=== PATIENT | male | born 1940 | race Caucasian/White ===

== ENCOUNTER → 2020-01-26 | Outpatient (CLI) | payer MEDICARE ==
[~2020-01-26] MED LIST: ALLOPURINOL 10100 M1 PO; ASPIR 8181 MG PO; CINNAMON500 MG PO; CIPRO500 MG PO; COLCHICINE0.6 MG PO; FISH OIL 1,001000 M2 PO; FISH OIL300 MG PO; FLOMAX0.4 MG PO; HYDROCODONE-APA1 TA1 PO; LANTUS100 UNIT/M SUBQ; LEVAQUIN 500 M500 M2 PO; MULTI-VITAMIN1 EAC4 PO; OMEPRAZOLE40 MG PO; PRAVACHOL20 MG PO; PRILOSEC20 MG PO; PRINIVIL20 MG PO; SAVAYSA60 MG PO; TOPROL XL50 MG PO; TUMS PO; TYLENOL325 MG PO; VITAMIN B-12500 MCG PO
[2020-01-26 14:21] LABS: CREATININE 1.2 mg/dL (0.6-1.3)
== END ==
LOC: M.CT 13:04
PROVIDERS: Surgery Vascular Surgery
DX: K44.9 Diaphragmatic hernia without obstruction or gangrene (principal); I72.2 Aneurysm of renal artery

== ENCOUNTER 2020-08-25 07:59 | Emergency (ER) | payer MEDICARE ==
[~2020-08-25] VITALS: Ht 175.3 cm; Wt 101.6 kg
[2020-08-25] MEDS ORDERED: OMEPRAZOLE40 MG PO (08:13)
[2020-08-25] MEDS ORDERED: FLOMAX0.4 MG PO (08:13)
[2020-08-25] MEDS ORDERED: CATAPRES0.2 M1 PO (08:13)
[2020-08-25] MEDS ORDERED: PRAVASTATIN SOD10 MG PO (08:14)
[2020-08-25] MEDS ORDERED: LEVO-T50 MCG PO (08:14)
[2020-08-25] MEDS ORDERED: HYDROCHLOROTH12.5 M2 PO (08:14)
[2020-08-25] MEDS ORDERED: PROSCAR 5MG TABL5 M1 PO (08:14)
[2020-08-25] MEDS ORDERED: KAPSPARGO SPRI100 MG PO (08:15)
[2020-08-25] MEDS ORDERED: LISINOPRIL20 MG PO (08:15)
[2020-08-25] MEDS ORDERED: ZYLOPRIM300 MG PO (08:15)
[2020-08-25] MEDS ORDERED: LANTUS SUBQ (08:16)
[2020-08-25] MEDS ORDERED: MITIGARE0.6 MG PO (08:16)
[2020-08-25] MEDS ORDERED: ELIQUIS5 MG PO (08:16)
[2020-08-25] MEDS ORDERED: CALCIUM500 MG (08:17)
[2020-08-25] MEDS ORDERED: MULTIVITAMINS PO (08:17)
[2020-08-25] MEDS ORDERED: ACETAMINOPHEN500 MG (08:17)
[2020-08-25] MEDS ORDERED: VITAMIN C1000 MG PO (08:18)
[2020-08-25] MEDS ORDERED: VITAMIN B COMP1 EACH PO (08:18)
[2020-08-25] MEDS ORDERED: DIPHENHIST50 MG PO (08:18)
[2020-08-25] MEDS ORDERED: CINNAMON500 MG (08:19)
[2020-08-25 09:08] LABS: ABSOLUTE EOSINOPHILS 0.1 thou/uL (0.0-0.7); ABSOLUTE LYMPHOCYTES 1.5 thou/uL (0.8-5.3); ABSOLUTE MONOCYTES 0.4 thou/uL (0.0-1.2); ABSOLUTE NEUTROPHILS 7.1 thou/uL (1.6-8.1); BASOPHILS 0.4 %; HEMATOCRIT 38.6 % (42.0-52.0); LYMPHOCYTES 16.3 %; MCH 33.5 pg (26.0-34.0); MCHC 33.5 g/dL (28.0-37.0); MCV 99.8 fL (80.0-100.0); MONOCYTES 4.9 %; MPV 8.1 fl. (7.2-11.1); NUCLEATED RBCS 0 /100WBC; PLATELET COUNT* 198 thou/uL (150-400); POLYS 77.4 %; RBC 3.87 mil/uL (4.50-6.00); RDW-CV 13.3 % (10.5-14.5); WBC 9.1 thou/uL (4.0-11.0)
[2020-08-25 09:14] LABS: CREATININE 1.1 mg/dL (0.6-1.3); POTASSIUM 3.8 mmol/L (3.5-5.1)
[2020-08-25 09:27] LABS: ALBUMIN 2.1 g/dL (3.4-5.0); TOTAL BILIRUBIN 0.5 mg/dL (<0.1-1.0); TOTAL PROTEIN 6.4 g/dL (6.4-8.2)
[2020-08-25] MEDS ORDERED: KEFLEX500 M1 PO (10:10)
[2020-08-25 10:26] VITALS: BP 138/65
--- NOTE | 2020-08-25 17:06 | EKG ---
[place] [address] ELECTROCARDIOGRAM REPORT Name: MJ ROTHMAN Room: [facility]#: [id number] Admission: 08/25/20 Attend Phys: Discharge: 08/25/20 Date of : 42 Date of Service: 08/25/20902 Report #: [id number] THIS REPORT FOR: //name// [facility] ED Test Date: 2020-08-25 Test Time: 09:03:02 Pat Name: MJ ROTHMAN Department: Room: Gender: Clinical Lab Clerk: [facility] : 1940 Requested By: [facility] [place] Order Number: [id number] MD: Mihai Tripathi Measurements Intervals [place] Rate: 91 P: [place]: QRS: -50 QRSD: 105 T: 37 QT: 393 QTc: 484 Interpretive Statements Atrial fibrillation Left anterior fascicular block Consider anterior infarct Compared to ECG 02/08/2016 00:03:30 rate has slowed Electronically Signed On 08-25-2020 17:06:20 [employer]UMANITIES INSTRU[employer] by Mihai Tripathi [email or web address] <ELECTRONICALLY SIGNED> By: Mihai Tripathi MD, [facility] 08/25/20 [id number] [id number] Mihai Tripathi MD, [facility] /EPI
== END 2020-08-25 10:28 | disposition home or self-care (01) ==
LOC: M.ERS 07:59
PROVIDERS: Emergency Medicine Emergency Medical Services
DX: S01.111A Laceration without foreign body of right eyelid and periocular area, initial encounter (principal); S60.222A Contusion of left hand, initial encounter; S60.221A Contusion of right hand, initial encounter; E11.9 Type 2 diabetes mellitus without complications; I48.91 Unspecified atrial fibrillation; F17.210 Nicotine dependence, cigarettes, uncomplicated; Z79.4 Long term (current) use of insulin; W06.XXXA Fall from bed, initial encounter; Y93.89 Activity, other specified; Y92.89 Other specified places as the place of occurrence of the external cause; Y99.8 Other external cause status

== ENCOUNTER → 2021-02-21 | Outpatient (CLI) | payer MEDICARE ==
[~2021-02-21] MED LIST changes: +ACETAMINOPHEN500 MG; +CALCIUM500 MG; +CATAPRES0.2 M1 PO; +CINNAMON500 MG; +DIPHENHIST50 MG PO; +ELIQUIS5 MG PO; +HYDROCHLOROTH12.5 M2 PO; +KAPSPARGO SPRI100 MG PO; +KEFLEX500 M1 PO; +LANTUS SUBQ; +LEVO-T50 MCG PO; +LISINOPRIL20 MG PO; +MITIGARE0.6 MG PO; +MULTIVITAMINS PO; +PRAVASTATIN SOD10 MG PO; +PROSCAR 5MG TABL5 M1 PO; +VITAMIN B COMP1 EACH PO; +VITAMIN C1000 MG PO; +ZYLOPRIM300 MG PO
[2021-02-21 10:02] LABS: CALCIUM 7.6 mg/dL (8.5-10.1); CREATININE 1.2 mg/dL (0.6-1.3); POTASSIUM 3.6 mmol/L (3.5-5.1)
== END ==
LOC: M.LAB 09:30 → M.CT 11:00
PROVIDERS: ATTEND Surgery Vascular Surgery
DX: I72.2 Aneurysm of renal artery (principal)